=== PATIENT | female | born 1975 | race Hispanic/Latino ===

== ENCOUNTER 2020-10-01 21:50 | Emergency (ER) | payer SELFPAY ==
[2020-10-02] MEDS ORDERED: HYDROCODONE/APAP 5/325 MG TAB ONE (00:09)
--- NOTE | 2020-10-02 01:05 | ER ---
Nurse's Notes [facility] Name: Charleen Mena Age: 45 yrs Sex: Female : 1975 Arrival Date: 10/01/2020 Time: 21:51 Bed 6 Private MD: Diagnosis: Head injury;Scalp laceration Presentation: 10/01 22:02 Chief complaint: Patient states: Head pain. Laceration to head at approximately 20:00, kg hit her head on a wood board, No LOC. Coronavirus screen: Client denies travel out of the [place] in the last 14 days. At this time, unable to obtain information related to travel outside the [place] At this time, the client does not indicate any symptoms associated with coronavirus-19. Ebola Screen: Patient negative for fever greater than or equal to 101.5 degrees Fahrenheit, and additional compatible Ebola Virus Disease symptoms Patient denies exposure to infectious person. Patient denies travel to an Ebola-affected area in the 21 days before illness onset. Complicating Factors: There are no complicating factors for this patient. Initial Sepsis Screen: Does the patient meet any 2 criteria? No. Patient's initial sepsis screen is negative. Does the patient have a suspected source of infection? No. Patient's initial sepsis screen is negative. Risk Assessment: Do you want to hurt yourself or someone else? Patient reports no desire to harm self or others. Onset of symptoms was October 01, 2020 at 20:00. 22:02 Method Of Arrival: Ambulatory kg 22:02 Acuity: BRENDAN 4 kg Triage Assessment: 22:05 General: Appears in no apparent distress. Behavior is calm, cooperative, appropriate kg for age. Pain: Complains of pain in face Pain currently is 7 out of 10 on a pain scale. Injury Description: Laceration sustained to Scalp is 2.6 to 7.5 cm long, was sustained 1-2 hours ago. 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 - Social history:: Smoking status: Patient denies any tobacco usage or history of. Screenin:17 Abuse screen: Denies threats or abuse. Denies injuries from another. Nutritional ms4 screening: No deficits noted. Tuberculosis screening: No symptoms or risk factors identified. Fall Risk None identified. Assessment: 22:16 General: Appears in no apparent distress. Behavior is calm, cooperative. Pain: ms4 Complains of pain in scalp. Neuro: No deficits noted. Cardiovascular: No deficits noted. Respiratory: No deficits noted. Musculoskeletal: No deficits noted. Injury Description: Laceration sustained to scalp. Vital Signs: 22:02 BP 158 / 105; Pulse 77; Resp 20; Temp 97.7(TE); Pulse Ox 99% on R/A; Weight 68.04 kg kg (R); Height 5 ft. 7 in. (170.18 cm); Pain 7/10; 10/02 01:22 BP 136 / 89; Pulse 70; Resp 18; Temp 98; Pulse Ox 98% ; Pain 0/10; ms4 10/01 22:02 Body Mass Index 23.49 (68.04 kg, 170.18 cm) kg ED Course: 10/01 21:51 Patient arrived in ED. as 21:54 Johnny Gallagher PA is PHCP. [facility] 21:54 Chi Soto MD is Attending Physician. jmm 22:05 Triage completed. kg 22:05 Arm band placed on left wrist. kg 22:17 No provider procedures requiring assistance completed. Patient did not have IV access ms4 during this emergency room visit. 10/02 00:17 Head C Spine Mpr Wo Con In Process Unspecified. EDMS 01:23 Patient has correct armband on for positive identification. ms4 Administered Medications: 10/01 23:44 Drug: HYDROcodone-acetaminophen 5 mg-325 mg 1 tabs Route: PO; ms4 10/02 01:23 Follow up: Response: No adverse reaction ms4 Outcome: 01:05 Discharge ordered by . jmm 01:22 Discharged to home ambulatory. ms4 01:22 Condition: stable 01:22 Discharge instructions given to patient, Instructed on discharge instructions, follow up and referral plans. Demonstrated understanding of instructions, follow-up care, Prescriptions given X 1. 01:46 Patient left the ED. ms4 Signatures: Dispatcher [employer] EDMS Johnny Gallagher PA PA jmm Martinez, Amelia as Graham, Kristen, LUIS RN Pat Sarkar RN RN ms4 Corrections: (The following items were deleted from the chart) 10/01 23:55 23:10 To radiology for Head Brain Wo Cont+CT.RAD.BRZ. ms4 EDMS
--- NOTE | 2020-10-02 01:05 | EDPHYS ---
Physician Documentation [facility] Name: Charleen Mena Age: 45 yrs Sex: Female : 1975 Arrival Date: 10/01/2020 Time: 21:51 Bed 6 Private MD: ED Physician Chi Soto HPI: 10/02 01:00 This 45 yrs old Female presents to ER via Ambulatory with complaints of jmm Laceration To Head. 01:00 The complaints affect the top of head. Onset: The symptoms/episode began/occurred jmm acutely, just prior to arrival. Associated signs and symptoms: Loss of consciousness: This patient did not experience any loss of consciousness. Pertinent negatives: vomiting. The patient has not experienced similar symptoms in the past. 45-year-old female with no chronic medical conditions presents to the emergency department with complaints of injury to the top of her head. Patient states a board hit her denies loss consciousness, vomiting patient also complains of left-sided neck pain. Patient is up-to-date on immunizations. 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 - Social history:: Smoking status: Patient denies any tobacco usage or history of. ROS: 10/02 01:00 Constitutional: Negative for fever, chills, and weight loss, Cardiovascular: Negative jmm for chest pain, palpitations, and edema, Respiratory: Negative for shortness of breath, cough, wheezing, and pleuritic chest pain. Skin: Positive for laceration(s). All other systems are negative. Exam: 01:00 Constitutional: This is a well developed, well nourished patient who is awake, alert, jmm and in no acute distress. 01:00 ENT: Moist Mucus Membranes 01:00 Chest/axilla: Normal chest wall appearance and motion. Cardiovascular: Regular rate and rhythm. No edema appreciated Respiratory: Normal respirations, no respiratory distress appreciated Abdomen/GI: Non distended, soft Back: Normal ROM Skin: General appearance color normal MS/ Extremity: Moves all extremities, no obvious deformities appreciated, no edema noted to the lower extremities Neuro: Awake and alert, normal gait Psych: Behavior is normal, Mood is normal, Patient is cooperative and pleasant 01:00 Head/face: 6 cm laceration noted to the top of the head. 01:00 Neck: Left lateral neck pain on palpation, no midline tenderness appreciated, full range of motion. Vital Signs: 10/01 22:02 BP 158 / 105; Pulse 77; Resp 20; Temp 97.7(TE); Pulse Ox 99% on R/A; Weight 68.04 kg kg (R); Height 5 ft. 7 in. (170.18 cm); Pain 7/10; 10/02 01:22 BP 136 / 89; Pulse 70; Resp 18; Temp 98; Pulse Ox 98% ; Pain 0/10; ms4 10/01 22:02 Body Mass Index 23.49 (68.04 kg, 170.18 cm) kg Laceration: 01:04 Wound Repair of 6cm ( 2.4in ) subcutaneous laceration to top of head. Distal jmm neuro/vascular/tendon intact. Anesthesia: Local anesthetic administered with 2 mls of 1% lidocaine w/ Epi. Wound prep: Simple cleansing with hibiclenz. Skin closed with 6 1-0 Lilibeth using staple gun. Patient tolerated well. MDM: 10/01 22:22 Patient medically screened. chelly 10/02 01:04 Data reviewed: vital signs, nurses notes. Counseling: I had a detailed discussion with chelly the patient and/or guardian regarding: the historical points, exam findings, and any diagnostic results supporting the discharge/admit diagnosis, radiology results, the need for outpatient follow up, to return to the emergency department if symptoms worsen or persist or if there are any questions or concerns that arise at home. ED course: Patient given head injury and wound infection return precautions. Patient understood and agrees plan of care.. 10/01 23:55 Order name: Head C Spine Mpr Wo Con EDMS 10/01 22:58 Order name: Wound Care; Complete Time: 23:10 chelly Administered Medications: 10/01 23:44 Drug: HYDROcodone-acetaminophen 5 mg-325 mg 1 tabs Route: PO; ms4 10/02 01:23 Follow up: Response: No adverse reaction ms4 Disposition: 05:35 Co-signature as Attending Physician, Chi Soto MD. [email or web address] Disposition Summary: 10/02/20 01:05 Discharge Ordered Location: Home [facility] Condition: Stable [facility] Diagnosis - Head injury [facility] - Scalp laceration [facility] Followup: [facility] - With: Private Physician - When: 2 - 3 days - Reason: Recheck today's complaints, Continuance of care, Re-evaluation by your physician Discharge Instructions: - Discharge Summary Sheet [facility] - Head Injury, Adult jmm - Facial Laceration [facility] Forms: - Medication Reconciliation Form [facility] - Thank You Letter [facility] - Antibiotic Education [facility] - Prescription Opioid Use [facility] Prescriptions: - orphenadrine citrate 100 mg Oral Tablet Sustained Release - take 1 tablet by ORAL route 2 times per day As needed; 20 tablet; Refills: 0, [facility] Product Selection Permitted Signatures: Dispatcher [employer] EDMS Johnny Gallagher PA PA jmm Holmes, Maurice, MD MD [email or web address] Dorothy Collado, RN RN kg Pat Prieto RN RN ms4 Corrections: (The following items were deleted from the chart) 10/01 23:55 22:25 Head Brain Wo Cont+CT.RAD.BRZ ordered. EDMS EDMS
[2020-10-02 01:53] VITALS: BP 136/89; TEMP 98; O2SAT 98
--- NOTE | 2020-10-03 12:02 | RAD REPORT ---
EXAM DESCRIPTION: CT - [id number] - 10/02/2020 5:11 am CLINICAL HISTORY: 45 years, Female, head injury COMPARISON: None FINDINGS: Multiple transaxial tomograms of the brain were obtained from the base of the skull to the vertex without contrast. 2-D multiplanar reformats and the coronal and sagittal plane were performed and reviewed. Subsequent transaxial CT images through the cervical spine were obtained at 2 mm slice thickness at 2 mm interval reconstruction. In addition 2-D multiplanar reformats and the sagittal coronal plane wer e performed and reviewed. This exam was performed according to our departmental dose-optimization protocol, which includes auto mated exposure control, adjustment of the mA and/or kV according to patient size and/or use of iterat mecca reconstruction technique. CT head: Brain parenchyma as well as the slade and white matter differentiation demonstrate to be unre markable. There is no midline shift and/or mass effect. There is no evidence for acute hemorrhage and /or infarction. Lateral ventricles and cisterns displace normal appearance. No intra or extra axi al fluid collections were seen. The calvarium is intact with no evidence for fracture. The visualized portions of the paranasal sinuses and orbits demonstrate to be clear. CT C-spine: The alignment, vertebral body heights, and disc spaces are normal. There is no evidence of fracture or subluxation. There are no significant degenerative changes. The spinal canal demonstr ate no evidence for significant stenosis. Neural foramina demonstrate to be unremarkable. The uncover tebral joints demonstrate to be normal. There is no prevertebral soft tissue swelling. The visualized lung apices demonstrate to be within normal limits. Sagittal coronal reformatted images demonstrate no subluxation or bony abnormalities. IMPRESSION: No evidence for acute intracranial hemorrhage, mass effect or midline shift. No evidence for acute fracture or subluxation of the cervical spine. Electronically signed by: Zhen Ho MD 10/02/2020 12:31 AM CDT Due to temporary technical issues with the PACS/Fluency reporting system, reports are being signed by the in house radiologist without review as a courtesy to ensure prompt reporting. The interpreting r adiologist is fully responsible for the content of the report.
== END 2020-10-02 01:46 | disposition home or self-care (01) ==
LOC: ER 21:50
PROC: 0JQ00ZZ Repair Scalp Subcutaneous Tissue and Fascia, Open Approach (ICD-10-PCS; principal; 2020-10-02)
DX: S01.01XA Laceration without foreign body of scalp, initial encounter (principal); W22.8XXA Striking against or struck by other objects, initial encounter
CPT/HCPCS: 70450; 72125; 99283